=== PATIENT | male | born 1995 | race Caucasian/White ===

== ENCOUNTER 2017-09-17 15:39 | Inpatient (IN) | payer OTHER ==
[~2017-09-17] VITALS: Ht 182.9 cm; Wt 121.4 kg
[2017-09-17 15:48] VITALS: Ht 182.9 cm; Wt 121.4 kg
[2017-09-17] MEDS ORDERED: ONDANSETRON 4 MG INJ IV STA (17:09)
[2017-09-17] MEDS ORDERED: morphine 4 MG/ML VIAL IV STA (17:09)
[2017-09-17] MEDS ORDERED: SOD CHLORIDE 0.9% 1,000 ML IV STA (17:09)
--- NOTE | 2017-09-17 17:23 | ERD ---
ER Documentation Chief Complaint Chief Complaint Sent from for eval and possible admission HPI 21-year-old man with a history of recent left ankle fracture referred here by his orthopedic surgeon for further imaging and possible surgical intervention. He fractured his left ankle about 3 weeks ago, it has been in a splint since then. Patient describes mild discomfort to the left ankle, no paresis or paresthesias no discoloration of the toes. ROS All systems reviewed and are negative except as per history of present illness. Medications Home Meds Reported Medications Hydrocodone Bit-Acetaminophen (Hydrocodone Bit-APAP) 5-325MG Tablet, 1 TAB PO Q6H Y for PAIN, TAB 09/17/17 Ibuprofen* (Ibuprofen*) 600 Mg Tablet, 600 MG PO Q6 Y for PAIN, TAB 09/17/17 Allergies Allergies: Coded Allergies: No Known Allergy (Unverified , 09/17/17) PMhx/Soc Recent left ankle fracture Medical and Surgical Hx: pt denies Medical Hx, pt denies Surgical Hx Hx Alcohol Use: No Hx Substance Use: No Hx Tobacco Use: No Smoking Status: Never smoker FmHx Family History: No diabetes Physical Exam Vitals Vital Signs Date Time Temp Pulse Resp B/P Pulse Ox O2 Delivery O2 Flow Rate FiO2 09/17/17 15:48 98.9 117 20 140/86 97 Physical Exam GENERAL: Well-developed, well-nourished, well-hydrated, in no apparent distress , looks nontoxic in appearance HEENT: Moist mucous membranes, pink conjunctiva, no cervical spine tenderness or step-off deformities, no goiter, no jaundice or icterus, extraocular movements intact without pain. No submandibular induration, and no pharyngeal erythema NEURO: Alert and oriented 3, cranial nerves II through XII intact bilaterally, pupils equal round reactive to light, no focal deficits or facial asymmetry, sensation intact distally Strength 5/5 in upper and lower extremities bilaterally CARDIAC: Regular rate and rhythm, no murmurs rubs or gallops LUNGS: Clear bilaterally no wheezing crackles or stridor ABDOMEN: Soft nontender, no guarding, no rigidity, no rebound, no psoas sign no obturator sign. Normoactive bowel sounds SKIN: Warm and dry to touch, no abrasions, contusions, or hematomas, no lacerations, no ecchymosis, no target lesions, and without ulcers EXTREMITIES: No clubbing cyanosis or edema, calves are bilaterally symmetrical, no Homans sign, no popliteal cord sign. Distal pulses equal and bilateral PSYCH: Normal affect without agitation or irritability Result Diagram: 09/17/17 1720 09/17/17 1720 Results 24 hrs Laboratory Tests Test 09/17/17 17:20 White Blood Count 8.810^3/ul Red Blood Count 4.8410^6/ul Hemoglobin 14.3g/dl Hematocrit 43.9% Mean Corpuscular Volume 90.7fl Mean Corpuscular Hemoglobin 29.5pg Mean Corpuscular Hemoglobin Concent 32.6g/dl Red Cell Distribution Width 12.3% Platelet Count 08979^3/UL Mean Platelet Volume 10.1fl Neutrophils % 61.1% Lymphocytes % 29.7% Monocytes % 7.3% Eosinophils % 1.3% Basophils % 0.3% Nucleated Red Blood Cells % 0.0/100WBC Neutrophils # 5.410^3/ul Lymphocytes # 2.610^3/ul Monocytes # 0.610^3/ul Eosinophils # 0.110^3/ul Basophils # 0.010^3/ul Nucleated Red Blood Cells # 0.010^3/ul Prothrombin Time 13.3Sec Prothrombin Time Ratio 1.0 INR International Normalized Ratio 1.00 Sodium Level 146mmol/L Potassium Level 4.2mmol/L Chloride Level 104mmol/L Carbon Dioxide Level 29mmol/L Anion Gap 17 Blood Urea Nitrogen 8mg/dl Creatinine 0.86mg/dl Glucose Level 90mg/dl Calcium Level 9.7mg/dl Current Medications Medications (Trade) Dose Ordered Sig/Salazar Route PRN Reason Start Time Stop Time Status Last Admin Dose Admin Sodium Chloride (NS) 1,000 ml @ 1,000 mls/hr Q1H STAT IV 09/17/17 17:09 09/17/17 18:08 DC 09/17/17 17:29 Morphine Sulfate (morphine) 4 mg ONCE STAT IV 09/17/17 17:09 09/17/17 17:12 DC 09/17/17 17:29 Ondansetron HCl (Zofran Inj) 4 mg ONCE STAT IV 09/17/17 17:09 09/17/17 17:12 DC 09/17/17 17:29 Procedures/MDM IV line was established patient was placed on monitor and storage bin tender rhythm strip revealed a sinus rhythm at about 80 bpm with upright P and T waves. Patient was afebrile I administered 1 L normal saline intravenously, morphine 4 mg IV, Zofran [address] scan of the left ankle was performed IMPRESSION: 1. Comminuted intra-articular displaced left distal tibial fracture with posterior displacement of the majority of the articular surface. 2. There are intra-articular bony fragments. CBC and electrolytes are normal, coagulation profile was normal. I spoke to the patient's orthopedic surgeon, who recommended admission and n.p.o. after midnight for surgical intervention tomorrow morning. Patient to be admitted to [facility] for continued medical management and orthopedic surgical intervention. Departure Diagnosis: Primary Impression: Closed left ankle fracture Encounter type: initial encounter Qualified Code: S82.892A - Closed fracture of left ankle, initial encounter Condition: NASEEM Meyer MD Sep 17, 2017 17:23
[2017-09-17 17:42] LABS: BASOPHILS % 0.3 % (0.0-2.0); EOSINOPHILS # 0.1 10^3/ul (0.0-0.5); EOSINOPHILS % 1.3 % (0.0-7.0); HEMATOCRIT 43.9 % (42.0-52.0); HEMOGLOBIN 14.3 g/dl (14.0-18.0); LYMPHOCYTES # 2.6 10^3/ul (0.8-2.9); LYMPHOCYTES % 29.7 % (15.0-51.0); MEAN CORPUSCULAR HEMOGLOBIN 29.5 pg (29.0-33.0); MEAN CORPUSCULAR HGB CONC 32.6 g/dl (32.0-37.0); MEAN CORPUSCULAR VOLUME 90.7 fl (82.0-101.0); MEAN PLATELET VOLUME 10.1 fl (7.4-10.4); MONOCYTE # 0.6 10^3/ul (0.3-0.9); MONOCYTES % 7.3 % (0.0-11.0); NEUTROPHIL # 5.4 10^3/ul (1.6-7.5); NEUTROPHILS % 61.1 % (39.0-77.0); PLATELET COUNT 444 10^3/UL (140-415); RED BLOOD COUNT 4.84 10^6/ul (4.70-6.10); RED CELL DISTRIBUTION WIDTH 12.3 % (11.5-14.5); WHITE BLOOD COUNT 8.8 10^3/ul (4.8-10.8)
[2017-09-17 18:03] LABS: PROTIME 13.3 Sec (11.9-14.9)
[2017-09-17 18:09] LABS: CALCIUM 9.7 mg/dl (8.4-10.2); CREATININE 0.86 mg/dl (0.61-1.24); POTASSIUM 4.2 mmol/L (3.5-5.1)
--- NOTE | 2017-09-17 18:47 | RADRPT ---
PROCEDURE: CT LEFT ANKLE CLINICAL INDICATION: Injury. Fracture.. TECHNIQUE: CT scan of the left ankle was performed on a multi -slice scanner. No IV contrast was administered. Coronal and sagittal reformatted images were obtained from the axial source images. The total exam DLP equals 793.33 mGy-cm. The CDTI volume was 18.42 mGy. One or more of the following dose reduction techniques were used: - Automated exposure control. - Adjustment of the mA and/or kV according to patient size . - Use of iterative reconstruction technique. Images were reviewed on a high-resolution PACS workstation. DICOM images are available. COMPARISON: None. FINDINGS: There is a comminuted intra-articular displaced left distal tibial fracture. There is a vertical spl it component with the separation of 2 cm seen on sagittal image number 77. The posterior aspect of t he tibia is displaced 16 mm posteriorly. There is a 2.6 cm butterfly fragment medially. There are in tra-articular fragments. No fibular component is identified. No evidence for talar dome osteochondra l defect. No evidence for calcaneal fracture. No evidence for midfoot or forefoot fracture. There is surrounding soft tissue swelling. IMPRESSION: 1. Comminuted intra-articular displaced left distal tibial fracture with posterior displacement of the majority of the articular surface. 2. There are intra-articular bony fragments. RPTAT: XX .Ki Zapata MD, Date Time Electronically viewed and signed by .Ki Zapata MD, MD on 09/17/2017 18:46 .T/
[2017-09-17 19:22] VITALS: TEMP 98.6
[2017-09-17 21:15] VITALS: BP 129/69; RESP 20
[2017-09-17] MEDS ORDERED: HYDR-3498 PO (21:37)
[2017-09-17] MEDS ORDERED: IBUP-1542 PO (21:37)
[2017-09-17] MEDS ORDERED: ONDANSETRON 4 MG INJ IV PRN (22:00)
[2017-09-17] MEDS ORDERED: morphine 4 MG/ML VIAL IV PRN (22:00)
[2017-09-18] VITALS (18 sets, daily range): BP systolic 112–153; BP diastolic 64–75; PULSE 101–118; RESP 14–24
[2017-09-18] MEDS: DEXTROSE 5%-0.45% NACL 1,000 ML IV SCH ×3 (00:23→16:18)
--- NOTE | 2017-09-18 05:21 | HP ---
Date/Time of Note Date/Time of Note DATE: 09/18/17 TIME: 05:18 Assessment/Plan VTE Prophylaxis VTE Prophylaxis Intervention: SCD's Lines/Catheters IV Catheter Type (from Nrs): Saline Lock Urinary Cath still in place: No Assessment/Plan Assessment/Plan 1. Left distal tibial fracture -Keep n.p.o. for possible surgical intervention in the morning -Pain management 2. Mild hypernatremia -Check repeat a.m. lab 3. Obesity, with a BMI of 36 - weight reduction advised HPI/ROS Admit Date/Time Admit Date/Time Sep 17, 2017 at 18:16 Hx of Present Illness This is a 21-year-old man with no significant chronic medical history who is admitted for orthopedic intervention. Patient fractured his left ankle about 3 weeks ago and has been on a cast since then. He was sent by his orthopedic surgeon for possible surgery in a.m. patient complains of some pain on left lower extremity otherwise denied shortness of breath, chest pain, fever/chills, nausea or vomiting. When he initially presented to the ER, BP was 140/86 with a heart rate of 117. Tachycardia has since resolved after a liter of NS and morphine. Labs shows sodium of 146 otherwise CBC and BMP are within acceptable range. CT of the left lower extremity showed comminuted intra-articular displaced left distal tibial fracture with posterior displacement of the majority of the articular surface and intra-articular bony fragments. PMH/Family/Social Social History Smoking Status: Never smoker Exam/Review of Systems Vital Signs Vitals Vital Signs Date Time Temp Pulse Resp B/P Pulse Ox O2 Delivery O2 Flow Rate FiO2 09/18/17 01:58 98.0 64 20 118/68 98 09/17/17 20:30 Room Air Intake and Output 09/17/17 09/17/17 09/18/17 14:59 22:59 06:59 Intake Total 450 ml Balance 450 ml Exam Constitutional: alert, oriented, well developed Head: atraumatic, normocephalic Eyes: EOMI, PERRL Respiratory: clear to auscultation, normal air movement Cardiovascular: nl pulses, regular rate and rhythm Gastrointestinal: non-tender, soft Extremities: other (Left lower extremity in a splint) Labs Result Diagram: 09/17/17 1720 09/17/17 1720 Medications Medications Current Medications Dextrose/Sodium Chloride (D5-1/2ns) 1,000 ml @ 100 mls/hr Q10H IV Last administered on 09/18/17 00:23; Admin Dose 100 MLS/HR; Start 09/18/17 at 00: 00 Morphine Sulfate (morphine) 4 mg Q4H PRN IV PAIN; Start 09/17/17 at 22:00 Ondansetron HCl (Zofran Inj) 4 mg Q6H PRN IV NAUSEA AND/OR VOMITING; Start 07/25 at 22:00 Influenza Virus Vaccine (Fluzone) 0.5 ml ONCE ONCE IM* ; Start 09/19/17 at 09: 00; Stop 09/19/17 at 09:01 BOB SANTILLAN MD Sep 18, 2017 05:21
[2017-09-18 05:53] LABS: WHITE BLOOD COUNT 8.4 10^3/ul (4.8-10.8)
[2017-09-18 05:54] LABS: BASOPHILS % 0.4 % (0.0-2.0); EOSINOPHILS # 0.2 10^3/ul (0.0-0.5); EOSINOPHILS % 2.4 % (0.0-7.0); HEMATOCRIT 38.9 % (42.0-52.0); HEMOGLOBIN 12.6 g/dl (14.0-18.0); LYMPHOCYTES % 47.9 % (15.0-51.0); MEAN CORPUSCULAR HEMOGLOBIN 29.5 pg (29.0-33.0); MEAN CORPUSCULAR HGB CONC 32.4 g/dl (32.0-37.0); MEAN CORPUSCULAR VOLUME 91.1 fl (82.0-101.0); MEAN PLATELET VOLUME 10.4 fl (7.4-10.4); MONOCYTE # 0.7 10^3/ul (0.3-0.9); NEUTROPHIL # 3.5 10^3/ul (1.6-7.5); NEUTROPHILS % 40.9 % (39.0-77.0); PLATELET COUNT 354 10^3/UL (140-415); RED BLOOD COUNT 4.27 10^6/ul (4.70-6.10); RED CELL DISTRIBUTION WIDTH 12.1 % (11.5-14.5)
[2017-09-18 06:15] LABS: ALBUMIN 3.5 g/dl (3.3-4.9); ALBUMIN/GLOBULIN RATIO 1.12; BILIRUBIN,INDIRECT 0.4 mg/dl (0-1.1); BILIRUBIN,TOTAL 0.4 mg/dl (0.2-1.3); CALCIUM 9.3 mg/dl (8.4-10.2); CREATININE 0.84 mg/dl (0.61-1.24); PHOSPHORUS 4.7 mg/dl (2.5-4.9); POTASSIUM 3.8 mmol/L (3.5-5.1); TOTAL PROTEIN 6.6 g/dl (6.1-8.1)
--- NOTE | 2017-09-18 08:11 | CONS ---
Date/Time of Note Date/Time of Note DATE: 09/18/17 TIME: 08:02 Assessment/Plan Assessment/Plan Additional Assessment/Plan 21 yo male with displaced left distal tibial pilon fracture dislocation - add on for emergent surgery ORIF today - NPO - IVF - NWB to the LLE -Cristobal BARRIOS MD Consultation Date/Type/Reason Admit Date/Time Sep 17, 2017 at 18:16 Date of Consultation: Sep 18, 2017 Type of Consultation: Orthopedic Surgery Referring Provider: BOB SANTILLAN MD Hx of Present Illness Patient is a 21 year old male who sustained a distal tibial pilon fracture 3.5 weeks ago. Due to insurance issues patient does not present for surgery until now. He was admitted through the ER yesterday and ct scan shows displaced ankle fracture dislocation. Patient requires urgent surgical fixation. Pain is moderately controlled Past Medical History Medical History: no pertinent history Past Surgical History Past Surgical Hx: no surgical history Family History Significant Family History: no pertinent family hx Social History Alcohol Use: none Smoking Status: Never smoker Drug Use: none Exam/Review of Systems Vital Signs Vitals Vital Signs Date Time Temp Pulse Resp B/P Pulse Ox O2 Delivery O2 Flow Rate FiO2 09/18/17 07:22 97.9 71 14 112/65 99 09/17/17 20:30 Room Air Intake and Output 09/17/17 09/17/17 09/18/17 15:00 23:00 07:00 Intake Total 450 ml Balance 450 ml Exam Musculoskeletal: other (LLE/ Splint intact, toes wiggle, sens intact to lt touch to the m/l/p with slightly decr to the fdws and dorsum but intact, cr brisk) Results Result Diagram: 09/18/17 0505 09/18/17 0505 Results 24 hrs Laboratory Tests Test 09/17/17 17:20 09/18/17 05:05 White Blood Count 8.8 8.4 Red Blood Count 4.84 4.27 L Hemoglobin 14.3 12.6 L Hematocrit 43.9 38.9 L Mean Corpuscular Volume 90.7 91.1 Mean Corpuscular Hemoglobin 29.5 29.5 Mean Corpuscular Hemoglobin Concent 32.6 32.4 Red Cell Distribution Width 12.3 12.1 Platelet Count 444 H 354 # Mean Platelet Volume 10.1 10.4 Neutrophils % 61.1 40.9 Lymphocytes % 29.7 47.9 Monocytes % 7.3 8.0 Eosinophils % 1.3 2.4 Basophils % 0.3 0.4 Nucleated Red Blood Cells % 0.0 0.0 Neutrophils # 5.4 3.5 Lymphocytes # 2.6 4.0 H Monocytes # 0.6 0.7 Eosinophils # 0.1 0.2 Basophils # 0.0 0.0 Nucleated Red Blood Cells # 0.0 0.0 Prothrombin Time 13.3 Prothrombin Time Ratio 1.0 INR International Normalized Ratio 1.00 Sodium Level 146 H 143 Potassium Level 4.2 3.8 Chloride Level 104 106 Carbon Dioxide Level 29 28 Anion Gap 17 H 13 Blood Urea Nitrogen 8 6 L Creatinine 0.86 0.84 Glucose Level 90 103 Calcium Level 9.7 9.3 Phosphorus Level 4.7 Magnesium Level 2.0 Total Bilirubin 0.4 Direct Bilirubin 0.00 Indirect Bilirubin 0.4 Aspartate Amino Transf (AST/SGOT) 22 Alanine Aminotransferase (ALT/SGPT) 52 Alkaline Phosphatase 77 Total Protein 6.6 Albumin 3.5 Globulin 3.10 Albumin/Globulin Ratio 1.12 Medications Medications Current Medications Dextrose/Sodium Chloride (D5-1/2ns) 1,000 ml @ 100 mls/hr Q10H IV Last administered on 09/18/17t 00:23; Admin Dose 100 MLS/HR; Start 09/18/17 at 00: 00 Morphine Sulfate (morphine) 4 mg Q4H PRN IV PAIN; Start 09/17/17 at 22:00 Ondansetron HCl (Zofran Inj) 4 mg Q6H PRN IV NAUSEA AND/OR VOMITING; Start 07/25 at 22:00 Influenza Virus Vaccine (Fluzone) 0.5 ml ONCE ONCE IM* ; Start 09/19/17 at 09: 00; Stop 09/19/17 at 09:01 COOKIE BARRIOS MD Sep 18, 2017 08:11
[2017-09-18] MEDS ORDERED: morphine 1 MG/ML 30 ML (PCA) IV SCH (08:30)
[2017-09-18] MEDS ORDERED: CEFAZOLIN 2 GM/50 ML (PMX) 50 ML IVPB ONE (09:00)
--- NOTE | 2017-09-18 09:00 | PN ---
Date/Time of Note Date/Time of Note DATE: 09/18/17 TIME: 08:59 Assessment/Plan VTE Prophylaxis VTE Prophylaxis Intervention: SCD's Lines/Catheters IV Catheter Type (from Nrs): Saline Lock Urinary Cath still in place: No Assessment/Plan Assessment/Plan 1. Left distal tibial fracture - emergent surgery ORIF today -Pain management 2. Mild hypernatremia: resolved 3. Obesity, with a BMI of 36 - weight reduction advise reinforced Resume supportive care post op / f/u surgical findings Subjective 24 Hr Interval Summary Free Text/Dictation patient doing well, states pain is well controlled Exam/Review of Systems Vital Signs Vitals Vital Signs Date Time Temp Pulse Resp B/P Pulse Ox O2 Delivery O2 Flow Rate FiO2 09/18/17 07:22 97.9 71 14 112/65 99 09/17/17 20:30 Room Air Intake and Output 09/17/17 09/17/17 09/18/17 15:00 23:00 07:00 Intake Total 450 ml Balance 450 ml Exam Constitutional: alert, oriented, well developed Head: atraumatic, normocephalic Eyes: EOMI, PERRL Respiratory: clear to auscultation, normal air movement Cardiovascular: nl pulses, regular rate and rhythm Gastrointestinal: non-tender, soft Extremities: other (Left lower extremity in a splint) Results Result Diagram: 09/18/17 0505 09/18/17 0505 Results 24 hrs Laboratory Tests Test 09/17/17 17:20 09/18/17 05:05 White Blood Count 8.8 8.4 Red Blood Count 4.84 4.27 L Hemoglobin 14.3 12.6 L Hematocrit 43.9 38.9 L Mean Corpuscular Volume 90.7 91.1 Mean Corpuscular Hemoglobin 29.5 29.5 Mean Corpuscular Hemoglobin Concent 32.6 32.4 Red Cell Distribution Width 12.3 12.1 Platelet Count 444 H 354 # Mean Platelet Volume 10.1 10.4 Neutrophils % 61.1 40.9 Lymphocytes % 29.7 47.9 Monocytes % 7.3 8.0 Eosinophils % 1.3 2.4 Basophils % 0.3 0.4 Nucleated Red Blood Cells % 0.0 0.0 Neutrophils # 5.4 3.5 Lymphocytes # 2.6 4.0 H Monocytes # 0.6 0.7 Eosinophils # 0.1 0.2 Basophils # 0.0 0.0 Nucleated Red Blood Cells # 0.0 0.0 Prothrombin Time 13.3 Prothrombin Time Ratio 1.0 INR International Normalized Ratio 1.00 Sodium Level 146 H 143 Potassium Level 4.2 3.8 Chloride Level 104 106 Carbon Dioxide Level 29 28 Anion Gap 17 H 13 Blood Urea Nitrogen 8 6 L Creatinine 0.86 0.84 Glucose Level 90 103 Calcium Level 9.7 9.3 Phosphorus Level 4.7 Magnesium Level 2.0 Total Bilirubin 0.4 Direct Bilirubin 0.00 Indirect Bilirubin 0.4 Aspartate Amino Transf (AST/SGOT) 22 Alanine Aminotransferase (ALT/SGPT) 52 Alkaline Phosphatase 77 Total Protein 6.6 Albumin 3.5 Globulin 3.10 Albumin/Globulin Ratio 1.12 Medications Medications Current Medications Dextrose/Sodium Chloride (D5-1/2ns) 1,000 ml @ 100 mls/hr Q10H IV Last administered on 09/18/17t 00:23; Admin Dose 100 MLS/HR; Start 09/18/17 at 00: 00 Morphine Sulfate (morphine) 4 mg Q4H PRN IV PAIN; Start 09/17/17 at 22:00 Ondansetron HCl (Zofran Inj) 4 mg Q6H PRN IV NAUSEA AND/OR VOMITING; Start 07/25 at 22:00 Influenza Virus Vaccine 0.5 ml 0.5 ml ONCE ONCE IM* ; Start 09/19/17 at 09:00; Stop 09/19/17 at 09:01 Cefazolin Sodium/ Dextrose (Ancef 2 Gm/50 ml (Pmx)) 50 ml @ 100 mls/hr PRE-OP ONCE IVPB ; Start 09/18/17 at 09:00; Stop 09/18/17 at 09:29 EUGENIA BLAND Sep 18, 2017 09:00
[2017-09-18] MEDS ORDERED: LIDOCAINE 2% (SDV) 5 ML INJ ONE (10:23)
[2017-09-18] MEDS ORDERED: FAMOTIDINE 20 MG INJ ONE (10:23)
[2017-09-18] MEDS ORDERED: FENTAnyl 50 MCG/ML VIAL ONE ×3 (10:23→14:49)
[2017-09-18] MEDS ORDERED: MIDAZOLAM 1 MG/ML 2 ML INJ ONE (10:23)
[2017-09-18] MEDS ORDERED: PROPOFOL 40 ML ONE (10:23)
[2017-09-18] MEDS ORDERED: ONDANSETRON 4 MG INJ ONE (10:23)
[2017-09-18] MEDS ORDERED: DEXAMETHASONE 4 MG/ML 1 ML INJ ONE (10:23)
[2017-09-18] MEDS ORDERED: ROCURONIUM 50 MG INJ ONE (10:23)
[2017-09-18] MEDS ORDERED: morphine (1 MG/ML) 10ML SYRINGE IV PRN (11:00)
[2017-09-18] MEDS ORDERED: KETOROLAC 30 MG INJ IV PRN (11:00)
[2017-09-18] MEDS ORDERED: FENTAnyl 50 MCG/ML VIAL IV PRN (11:00)
[2017-09-18] MEDS ORDERED: ONDANSETRON 4 MG INJ IV PRN ×2 (11:00→16:00)
[2017-09-18] MEDS ORDERED: HYDROmorphONE (0.2 MG/ML) 10ML SYG IV PRN (11:00)
[2017-09-18] MEDS ORDERED: MEPERIDINE 25 MG INJ IV PRN (11:00)
[2017-09-18] MEDS ORDERED: POLYMYXIN/BACITRACIN 1L IRRIG IRR ONE (11:25)
[2017-09-18] MEDS ORDERED: SUGAMMADEX SODIUM 200 MG/2 ML VIAL IV ONE (12:04)
[2017-09-18] MEDS ORDERED: NEOMYC/POLYMYX/BACIT 30 GM OINT ONE (14:17)
[2017-09-18] MEDS ORDERED: KETOROLAC 30 MG INJ ONE (14:26)
[2017-09-18] MEDS ORDERED: ROPIVACAINE 0.5 % 30 ML VIAL ONE (15:01)
--- NOTE | 2017-09-18 15:29 | SIPON ---
Date/Time of Note Date/Time of Note DATE: 09/18/17 TIME: 15:29 Operative Report Preoperative Diagnosis Left ankle fracture dislocation with displaced distal tibial pilon fracture Postoperative Diagnosis Left ankle fracture dislocation with displaced distal tibial pilon fracture Operation/Procedure Performed Left ankle fracture dislocation displaced distal tibial pilon fracture open reduction internal fixation with allograft Application of external fixator followed by removal of ex- fix Surgeon Wade Barrios MD equity sales assistant None Anesthesia: general Estimated blood loss: 50 - 100 ml's Transfusion Required none Specimen none Grafts/Implants see operative note Complications none WADE BARRIOS MD Sep 18, 2017 15:29
--- NOTE | 2017-09-18 15:29 | OPR ---
Date/Time of Note Date/Time of Note DATE: 09/18/17 TIME: 15:29 Operative Report Procedure Date: Sep 18, 2017 Preoperative Diagnosis Left ankle fracture dislocation with displaced distal tibial pilon fracture Postoperative Diagnosis Left ankle fracture dislocation with displaced distal tibial pilon fracture Operation/Procedure Performed Left ankle fracture dislocation displaced distal tibial pilon fracture open reduction internal fixation with allograft Application of external fixator followed by removal of ex- fix Surgeon Wade Barrios MD Signals Collection Technician None Anesthesia Type: general Tourniquet Time: 130 min at 250 mmHg Estimated Blood Loss: 50 - 100 ml's Transfusion none Specimen none Grafts/Implants Niki Distal tibial pilon plate and screws with medial plate and screws [employer] Elite Bone Graft Complications none Pt Condition Post Procedure: stable Disposition: PACU Indications Patient is a 21-year-old gentleman who sustained a left ankle fracture dislocation approximately 3 and half weeks ago. He presented to my office 2 days ago and his ankle was completely dislocated at the time of presentation if he arrived in a posterior mold splint. He reported that the delay in presentation was due to insurance authorization issues. Given the significant dislocation I recommend patient go to emergency room so we could proceed with urgent reduction and fixation. Patient was admitted and given the extent of the fracture dislocation patient required open reduction internal fixation of the distal tibial pilon and fibular fracture. Procedure Description Risk Note: Patient was explained the risks and benefits of surgery and the patient's [place] language including not limited to infection, bleeding, injury to blood vessels, nerves, ligaments or tendons. Risks of anesthesia, deep vein thrombosis and need for reduce future surgery. Patient acknowledged these risk by signing the surgical consent form. Modifier 22 note: Given the extensive length of time the patient's ankle was in a dislocated position this required an extraordinary amount of technical skill and time in the operating room to both obtain adequate length alignment and rotation. This required applying an external fixator device in order to reduce the fracture and the pain length and alignment and reduction of the fracture. The external fixator had to be removed and the case but this added a significant time to the case and thus made the case extensively more challenging and technically difficult due to the length of time of the fracture being in the mal-reduced position. Thus the case should be given a modifier 22 compensation. Operative note: Patient was met in the preoperative area and the correct operative extremity was confirmed with the patient and consent and marked accordingly. Patient was then brought to the operative theater placed supine on operative table given preoperative antibiotics. Patient was prepped and draped in normal sterile fashion. A timeout was taken in all parties in the room agreed direct patient extremity and procedure. Attention was initially placed to reduce in the fracture dislocation given that the talus was posteriorly displaced on the tibia. A external fixator was placed in a delta frame position with 2 Schanz pins proximally on the tibia followed by a calcaneal pin placed medial to lateral at the calcaneus. The fracture was then distracted out to length using the external fixator device. This is confirmed on both AP lateral and oblique fluoroscopic position. Tourniquet was then brought up incision was made in the anterior lateral approach and care was taken to avoid any injury to the neurovascular structures. Fracture was identified along the anterior lateral aspect of the distal fibula and there is extensive comminution and osteopenia seen at this fracture site. The fracture was reduced and held in position with K wires. An anterior lateral distal tibial pilon plate was then placed compressing the fracture and a lag screw is in place free of the fracture plate and further reduce the fracture fragment. The [employer] Elite allograft was also placed in the site of bone loss to further obtain allograft assistance in the healing of the fracture. The final fixation was then placed with screws both proximal and locking screws distally along the anterior surface of the distal tibia. It was confirmed that the screws were not in the joint shown on both lateral and AP position. Once the anterior lateral leg was placed and there is shown to be excellent reduction of the articular surface attention was then turned to the medial aspect of the ankle incision was made along the medial aspect and decision was performed fracture was identified hematoma was removed and fracture was further reduced and held in position with K wires and then fixated with the medial tibial plate. The fracture was reduced and held in position with lag screw fixation and locking screw nonlocking screw fixation. Once the fracture was gently reduced and with the AP, lateral and oblique position all wounds irrigated thoroughly and closed in layers with 0 Vicryl followed by 2-0 Vicryl followed by 3-0 Vicryl and then 3-0 nylon in a running vertical mattress fashion. All wounds are dressed Xeroform, antibiotic ointment 4 x 4's and placed in a well-padded short leg splint. I then the case all lunges and needle counts were correct. I then the case the pulses were 2+ and patient was taken to the PACU in stable condition. WADE BARRIOS MD Sep 18, 2017 15:29
[2017-09-18] MEDS: morphine 1 MG/ML 30 ML (PCA) IV SCH (15:58)
[2017-09-18] MEDS ORDERED: MAGNESIUM HYDROXIDE 30ML CUP PO PRN (16:00)
[2017-09-18] MEDS ORDERED: CEFAZOLIN 1 GM INJ IV SCH (16:00)
[2017-09-18] MEDS ORDERED: DIPHENHYDRAMINE 25 MG CAP PO PRN (16:00)
[2017-09-18] MEDS ORDERED: OXYCODONE/ACETAMINOPHEN (5/325) TAB PO PRN (16:00)
[2017-09-18] MEDS ORDERED: morphine 10 MG INJ IV PRN (16:00)
[2017-09-18] MEDS: CEFAZOLIN 2 GM/50 ML (PMX) 50 ML IVPB SCH (16:23)
[2017-09-18] MEDS: SENNA/DOCUSATE NA (8.6MG/50MG) TAB PO SCH (20:35)
[2017-09-19] MEDS: CEFAZOLIN 2 GM/50 ML (PMX) 50 ML IVPB SCH ×3 (00:34→17:23)
[2017-09-19 02:14] VITALS: BP 125/75; RESP 18
[2017-09-19 05:59] LABS: BASOPHILS % 0.2 % (0.0-2.0); EOSINOPHILS % 0.1 % (0.0-7.0); HEMATOCRIT 36.8 % (42.0-52.0); HEMOGLOBIN 12.1 g/dl (14.0-18.0); LYMPHOCYTES # 2.1 10^3/ul (0.8-2.9); LYMPHOCYTES % 15.9 % (15.0-51.0); MEAN CORPUSCULAR HEMOGLOBIN 29.8 pg (29.0-33.0); MEAN CORPUSCULAR HGB CONC 32.9 g/dl (32.0-37.0); MEAN CORPUSCULAR VOLUME 90.6 fl (82.0-101.0); MEAN PLATELET VOLUME 10.3 fl (7.4-10.4); MONOCYTE # 1.4 10^3/ul (0.3-0.9); MONOCYTES % 10.6 % (0.0-11.0); NEUTROPHIL # 9.6 10^3/ul (1.6-7.5); NEUTROPHILS % 72.8 % (39.0-77.0); PLATELET COUNT 375 10^3/UL (140-415); RED BLOOD COUNT 4.06 10^6/ul (4.70-6.10); RED CELL DISTRIBUTION WIDTH 12.2 % (11.5-14.5); WHITE BLOOD COUNT 13.2 10^3/ul (4.8-10.8)
[2017-09-19 06:24] LABS: CALCIUM 9.2 mg/dl (8.4-10.2); CREATININE 0.88 mg/dl (0.61-1.24); MAGNESIUM 1.9 mg/dl (1.7-2.5); POTASSIUM 4.6 mmol/L (3.5-5.1)
[2017-09-19 07:22] VITALS: BP 112/59; RESP 14
[2017-09-19] MEDS: SENNA/DOCUSATE NA (8.6MG/50MG) TAB PO SCH ×2 (08:30→20:41)
[2017-09-19] MEDS ORDERED: INFLUENZA VIRUS VACCINE 0.5 ML (DISPENSING) IM* ONE (09:00)
--- NOTE | 2017-09-19 11:07 | PN ---
Date/Time of Note Date/Time of Note DATE: 09/19/17 TIME: 10:58 Assessment/Plan VTE Prophylaxis VTE Prophylaxis Intervention: other (xarelto) Lines/Catheters IV Catheter Type (from Nrs): Peripheral IV Urinary Cath still in place: No Assessment/Plan Assessment/Plan 1. 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 Mild hypernatremia: resolved 3. Obesity, with a BMI of 36 - weight reduction advise reinforced 4. leucocytosis : likely stress related Resume supportive care post op Subjective 24 Hr Interval Summary Free Text/Dictation Patient is c/o pain which he describes as a twisting sensation in his mid leg which started after PT. he was able to ambulate with crutches without bearing weight on R leg. The morphine FIGHTING VEHICLE INFANTRYMAN is not really helping. Exam/Review of Systems Vital Signs Vitals Vital Signs Date Time Temp Pulse Resp B/P Pulse Ox O2 Delivery O2 Flow Rate FiO2 09/19/17 07:22 98.9 87 14 112/59 94 09/18/17 16:00 Room Air 09/18/17 15:19 6.0 Intake and Output 09/18/17 09/18/17 09/19/17 15:00 23:00 07:00 Intake Total 2150 ml 300 ml 525 ml Output Total 100 ml Balance 2150 ml 200 ml 525 ml Exam Constitutional: alert Psych: anxiety Eyes: PERRL ENMT: mucosa pink and moist Neck: supple Respiratory: clear to auscultation Cardiovascular: regular rate and rhythm, No murmurs/extra sounds Gastrointestinal: bowel sounds, non-tender, soft Musculoskeletal: other (R knee in cast fro toes to just below knee. Area around R knee is non tender nor inflammed nor obviously displaced) Neurological: nl mental status Skin: No rash or lesions Results Result Diagram: 09/19/17 0453 09/19/17 0453 Results 24 hrs Laboratory Tests Test 09/19/17 04:53 White Blood Count 13.2 #H Red Blood Count 4.06 L Hemoglobin 12.1 L Hematocrit 36.8 L Mean Corpuscular Volume 90.6 Mean Corpuscular Hemoglobin 29.8 Mean Corpuscular Hemoglobin Concent 32.9 Red Cell Distribution Width 12.2 Platelet Count 375 Mean Platelet Volume 10.3 Neutrophils % 72.8 Lymphocytes % 15.9 Monocytes % 10.6 Eosinophils % 0.1 Basophils % 0.2 Nucleated Red Blood Cells % 0.0 Neutrophils # 9.6 H Lymphocytes # 2.1 Monocytes # 1.4 H Eosinophils # 0.0 Basophils # 0.0 Nucleated Red Blood Cells # 0.0 Sodium Level 141 Potassium Level 4.6 Chloride Level 104 Carbon Dioxide Level 29 Anion Gap 13 Blood Urea Nitrogen 5 L Creatinine 0.88 Glucose Level 113 Calcium Level 9.2 Magnesium Level 1.9 Medications Medications Current Medications Dextrose/Sodium Chloride (D5-1/2ns) 1,000 ml @ 50 mls/hr Q20H IV Last administered on 09/18/17 16:18; Admin Dose 100 MLS/HR; Start 09/18/17 at 00: 00 Ondansetron HCl (Zofran Inj) 4 mg Q6H PRN IV NAUSEA AND/OR VOMITING Last administered on 09/18/17 16:41; Admin Dose 4 MG; Start 09/17/17 at 22:00 Senna/Docusate Sodium (Senokot-S) 1 tab BID PO Last administered on 09/19/17 08:30; Admin Dose 1 TAB; Start 09/18/17 at 21:00 Magnesium Hydroxide (Milk Of Mag) 30 ml BID PRN PO CONSTIPATION; Start at 16:00 Oxycodone/ Acetaminophen (Percocet (5/ 325)) 2 tab Q4H PRN PO PAIN Last administered on 09/19/17 10:24; Admin Dose 2 TAB; Start 09/18/17 at 16:00 Morphine Sulfate (morphine) 5 mg Q4H PRN IV PAIN LEVEL 7-10; Start 09/18/17 at 16:00 Ondansetron HCl (Zofran Inj) 4 mg Q4H PRN IV NAUSEA AND/OR VOMITING Last administered on 09/18/17 20:35; Admin Dose 4 MG; Start 09/18/17 at 16:00 Diphenhydramine HCl (Benadryl) 25 mg Q4H PRN PO ITCHING; Start 09/18/17 at 16: 00 Morphine Sulfate 1.5 MG DOSE 10 ... Q4PCA IV Last administered on 09/18/17 15:58; Admin Dose 30 MG; Start 09/18/17 at 16:00 Cefazolin Sodium/ Dextrose (Ancef 2 Gm/50 ml (Pmx)) 50 ml @ 100 mls/hr Q8H IVPB Last administered on 09/19/17 08:30; Admin Dose 100 MLS/HR; Start 09/18 at 16:30; Stop 09/20/17 at 08:59 EUGENIA BLAND Sep 19, 2017 11:07
[2017-09-19] MEDS: morphine 1 MG/ML 30 ML (PCA) IV SCH (11:29)
--- NOTE | 2017-09-19 12:34 | PN ---
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 Feeding: advancing diet Pain Control: mild Exam/Review of Systems Vital Signs Vitals Vital Signs Date Time Temp Pulse Resp B/P Pulse Ox O2 Delivery O2 Flow Rate FiO2 09/22/17 14:00 99.6 103 17 144/83 97 Results Result Diagram: 09/22/17 0537 09/22/17 0537 COOKIE BARRIOS MD Sep 19, 2017 12:34 Result Diagram: 09/19/17 0453 09/19/17 0453 COOKIE BARRIOS MD Sep 19, 2017 12:34
--- NOTE | 2017-09-19 12:46 | RADRPT ---
PROCEDURE: Left knee x-ray CLINICAL INDICATION: increased pain TECHNIQUE: AP and lateral views of the knee were obtained. COMPARISON: None FINDINGS: There is normal mineralization. No fracture is identified. Lucencies are seen in the proximal tibial diaphysis, likely related to previous hardware placement. There are no significant degenerative changes. There is no joint effusion. There is no significant soft tissue swelling. IMPRESSION: 1. No acute abnormalities are identified. 2. Lucencies are seen in the proximal tibial diaphysis, likely related to previous hardware placeme nt. RPTAT:AAJJ Physician Kunal Date Time Electronically viewed and signed by Physician Kunal on 09/19/2017 12:46 /
--- NOTE | 2017-09-19 12:49 | RADRPT ---
PROCEDURE: XR Left Ankle. CLINICAL INDICATION: increased pain TECHNIQUE: AP, oblique and lateral views of the ankle were performed. COMPARISON: 09/18/2017 FINDINGS: Images are obtained through a fiberglass splint which limits fine detail. Fixation plates are seen stabilizing the distal lateral tibia and distal medial tibia to include the medial malleolus. A comminuted medial malleolar fracture is present. No additional fractures are cl early identified. No acute fracture is identified. The angle mortise is intact. The soft tissues are unremarkable. IMPRESSION: Fixation plates are seen stabilizing the distal lateral tibia and distal medial tibia to include the medial malleolus. A comminuted medial malleolar fracture is present. RPTAT:AAJJ Physician Kunal Date Time Electronically viewed and signed by Alex Lopez Physician on 09/19/2017 12:49 RONY/
[2017-09-19] MEDS: oxyCODONE 5 MG TAB PO SCH ×3 (13:45→20:41)
[2017-09-19 14:14] VITALS: BP 132/72; RESP 14
[2017-09-19] MEDS: RIVAROXABAN 10 MG TABLET PO SCH (17:23)
[2017-09-19 20:00] VITALS: BP 139/88; RESP 14
[2017-09-19] MEDS: ACETAMINOPHEN 500 MG TAB PO PRN (20:47)
[2017-09-20] MEDS: CEFAZOLIN 2 GM/50 ML (PMX) 50 ML IVPB SCH ×2 (00:36→09:04)
[2017-09-20] MEDS: oxyCODONE 5 MG TAB PO SCH ×6 (00:36→20:37)
[2017-09-20 01:42] VITALS: BP 131/75; RESP 14
[2017-09-20] MEDS: ACETAMINOPHEN 500 MG TAB PO PRN (03:57)
[2017-09-20] MEDS: HYDROmorphONE 1 MG/ML SYG IV PRN ×2 (03:57→06:55)
[2017-09-20 04:31] LABS: BASOPHILS % 0.1 % (0.0-2.0); EOSINOPHILS % 0.1 % (0.0-7.0); HEMATOCRIT 37.7 % (42.0-52.0); HEMOGLOBIN 12.3 g/dl (14.0-18.0); LYMPHOCYTES # 2.5 10^3/ul (0.8-2.9); MEAN CORPUSCULAR HEMOGLOBIN 29.1 pg (29.0-33.0); MEAN CORPUSCULAR HGB CONC 32.6 g/dl (32.0-37.0); MEAN CORPUSCULAR VOLUME 89.3 fl (82.0-101.0); MEAN PLATELET VOLUME 10.1 fl (7.4-10.4); MONOCYTE # 1.3 10^3/ul (0.3-0.9); MONOCYTES % 9.3 % (0.0-11.0); NEUTROPHIL # 9.9 10^3/ul (1.6-7.5); NEUTROPHILS % 72.1 % (39.0-77.0); PLATELET COUNT 384 10^3/UL (140-415); RED BLOOD COUNT 4.22 10^6/ul (4.70-6.10); RED CELL DISTRIBUTION WIDTH 12.1 % (11.5-14.5); WHITE BLOOD COUNT 13.7 10^3/ul (4.8-10.8)
[2017-09-20 04:42] LABS: CALCIUM 8.6 mg/dl (8.4-10.2); CREATININE 0.8 mg/dl (0.61-1.24); POTASSIUM 3.6 mmol/L (3.5-5.1)
[2017-09-20 05:16] LABS: ADD UMIC YES; UR ASCORBIC ACID NEGATIVE (NEGATIVE); UR BILIRUBIN (Dip) NEGATIVE (NEGATIVE); UR BLOOD (Dip) 1+ mg/dL (NEGATIVE); UR CLARITY CLEAR (CLEAR); UR COLOR YELLOW (YELLOW); UR GLUCOSE (Dip) NEGATIVE (NEGATIVE); UR KETONES (Dip) TRACE mg/dL (NEGATIVE); UR LEUKOCYTE ESTERASE (Dip) NEGATIVE Leu/ul (NEGATIVE); UR NITRITE (Dip) NEGATIVE (NEGATIVE); UR RBC 2 /HPF (0-5); UR SPECIFIC GRAVITY (Dip) 1.014 (1.003-1.030); UR TOTAL PROTEIN (Dip) NEGATIVE (NEGATIVE); UR UROBILINOGEN (Dip) NEGATIVE (NEGATIVE)
[2017-09-20 07:38] VITALS: BP 133/71; RESP 18
--- NOTE | 2017-09-20 08:29 | RADRPT ---
PROCEDURE: XR Chest. CLINICAL INDICATION: Fever TECHNIQUE: Single frontal chest x-ray. COMPARISON: None. FINDINGS: No acute infiltrate, pleural effusion or pneumothorax is identified. Cardiomediastinal silhouette i s within normal limits. The osseous structures are unremarkable. IMPRESSION: 1. No evidence of acute cardiopulmonary process. RPTAT: QQ .Tommy Giordano MD, MD Date Time Electronically viewed and signed by .Tommy Giordano MD, on 09/20/2017 08:29 .R/
[2017-09-20] MEDS: SENNA/DOCUSATE NA (8.6MG/50MG) TAB PO SCH ×2 (09:05→20:37)
--- NOTE | 2017-09-20 10:33 | HP ---
Date/Time of Note Date/Time of Note DATE: 09/20/17 TIME: 10:33 Assessment/Plan Lines/Catheters IV Catheter Type (from Nrsg): Saline Lock Urinary Cath still in place: No Assessment/Plan Assessment/Plan 1. Left distal tibial fracture (Comminuted intra-articular displaced left distal tibial fracture with posterior displacement of the majority of the articular surface.) - s/p emergent ORIF -on ANIMAL PATHOLOGIST morphine pump for pain with oral percocets and IV cefazolin per ortho -Will order XRs to ensure continued satisfactory alignment / also notify ortho 2. Mild hypernatremia: resolved 3. Obesity, with a BMI of 36 - weight reduction advise reinforced 4. leucocytosis : likely stress related 5. Post op fever HPI/ROS Admit Date/Time Admit Date/Time Sep 17, 2017 at 18:16 Hx of Present Illness patient developed fever overnight ROS Psychological: anxiety PMH/Family/Social Past Medical History Medical History: no pertinent history Past Surgical History Past Surgical Hx: no surgical history Social History Alcohol Use: none Smoking Status: Never smoker Drug Use: none Exam/Review of Systems Vital Signs Vitals Vital Signs Date Time Temp Pulse Resp B/P Pulse Ox O2 Delivery O2 Flow Rate FiO2 09/20/17 07:38 98.7 96 18 133/71 95 09/18/17 16:00 Room Air 09/18/17 15:19 6.0 Intake and Output 09/19/17 09/19/17 09/20/17 14:59 22:59 06:59 Intake Total 1900 ml 2170 ml 670 ml Output Total 1200 ml 720 ml Balance 700 ml 2170 ml -50 ml Labs Result Diagram: 09/20/17 0350 09/20/17 0350 Medications Medications Current Medications Ondansetron HCl (Zofran Inj) 4 mg Q6H PRN IV NAUSEA AND/OR VOMITING Last administered on 09/18/17 16:41; Admin Dose 4 MG; Start 09/17/17 at 22:00 Senna/Docusate Sodium (Senokot-S) 1 tab BID PO Last administered on 09/20/17 09:05; Admin Dose 1 TAB; Start 09/18/17 at 21:00 Magnesium Hydroxide (Milk Of Mag) 30 ml BID PRN PO CONSTIPATION; Start at 16:00 Ondansetron HCl (Zofran Inj) 4 mg Q4H PRN IV NAUSEA AND/OR VOMITING Last administered on 09/18/17 20:35; Admin Dose 4 MG; Start 09/18/17 at 16:00 Diphenhydramine HCl (Benadryl) 25 mg Q4H PRN PO ITCHING; Start 09/18/17 at 16: 00 Oxycodone HCl (Roxicodone) 10 mg Q4H PO Last administered on 09/20/17 09:05; Admin Dose 10 MG; Start 09/19/17 at 13:00 Acetaminophen (Tylenol Tab) 500 mg Q6H PRN PO PAIN AND OR ELEVATED TEMP Last administered on 09/20/17 03:57; Admin Dose 500 MG; Start 09/19/17 at 13:00 Hydromorphone HCl (Dilaudid) 1 mg Q3H PRN IV PAIN LEVEL 8-10 Last administered on 09/20/17 06:55; Admin Dose 1 MG; Start 09/19/17 at 13:00 EUGENIA BLAND Sep 20, 2017 10:33
--- NOTE | 2017-09-20 13:02 | PN ---
Date/Time of Note Date/Time of Note DATE: 09/20/17 TIME: 12:59 Assessment/Plan VTE Prophylaxis VTE Prophylaxis Intervention: other (xarelto) Lines/Catheters IV Catheter Type (from Nrsg): Saline Lock Urinary Cath still in place: No Assessment/Plan Assessment/Plan 1. Left distal tibial fracture (Comminuted intra-articular displaced left distal tibial fracture with posterior displacement of the majority of the articular surface.) - s/p emergent ORIF -on STOCK DEALER morphine pump for pain with oral percocets and IV cefazolin per ortho -XRs reviewed without concern for re-intervention 2. Mild hypernatremia: resolved 3. Obesity, with a BMI of 36 - weight reduction advise reinforced 4. Leukocytosis and Post op fever: uA and CXR negative so far, f/u blood cultures, continue abx per ortho / continue IS, titrate abx if blood cultures come back positive Plan for d/c when fever free x24hr Subjective 24 Hr Interval Summary Free Text/Dictation patient developed fever overnight, feels better now though. Pain in leg is gone now. Exam/Review of Systems Vital Signs Vitals Vital Signs Date Time Temp Pulse Resp B/P Pulse Ox O2 Delivery O2 Flow Rate FiO2 09/20/17 07:38 98.7 96 18 133/71 95 09/18/17 16:00 Room Air 09/18/17 15:19 6.0 Intake and Output 09/19/17 09/19/17 09/20/17 14:59 22:59 06:59 Intake Total 1900 ml 2170 ml 670 ml Output Total 1200 ml 720 ml Balance 700 ml 2170 ml -50 ml Exam Constitutional: alert Psych: calm Eyes: PERRL ENMT: mucosa pink and moist Neck: supple Respiratory: clear to auscultation Cardiovascular: regular rate and rhythm, No murmurs/extra sounds Gastrointestinal: bowel sounds, non-tender, soft Musculoskeletal: other (R knee in cast fro toes to just below knee. Area around R knee is non tender nor inflammed nor obviously displaced) Neurological: nl mental status Skin: No rash or lesions Results Result Diagram: 09/20/17 0350 09/20/17 0350 Results 24 hrs Laboratory Tests Test 09/20/17 03:11 09/20/17 03:50 Urine Color YELLOW Urine Clarity CLEAR Urine pH 6.0 Urine Specific Metcalf 1.014 Urine Ketones TRACE A Urine Nitrite NEGATIVE Urine Bilirubin NEGATIVE Urine Urobilinogen NEGATIVE Urine Leukocyte Esterase NEGATIVE Urine Microscopic RBC 2 Urine Microscopic WBC 1 Urine Hemoglobin 1+ H Urine Glucose NEGATIVE Urine Total Protein NEGATIVE White Blood Count 13.7 H Red Blood Count 4.22 L Hemoglobin 12.3 L Hematocrit 37.7 L Mean Corpuscular Volume 89.3 Mean Corpuscular Hemoglobin 29.1 Mean Corpuscular Hemoglobin Concent 32.6 Red Cell Distribution Width 12.1 Platelet Count 384 Mean Platelet Volume 10.1 Neutrophils % 72.1 Lymphocytes % 18.0 Monocytes % 9.3 Eosinophils % 0.1 Basophils % 0.1 Nucleated Red Blood Cells % 0.0 Neutrophils # 9.9 H Lymphocytes # 2.5 Monocytes # 1.3 H Eosinophils # 0.0 Basophils # 0.0 Nucleated Red Blood Cells # 0.0 Sodium Level 138 Potassium Level 3.6 Chloride Level 101 Carbon Dioxide Level 27 Anion Gap 14 Blood Urea Nitrogen 6 L Creatinine 0.80 Glucose Level 105 Calcium Level 8.6 Medications Medications Current Medications Ondansetron HCl (Zofran Inj) 4 mg Q6H PRN IV NAUSEA AND/OR VOMITING Last administered on 09/18/17 16:41; Admin Dose 4 MG; Start 09/17/17 at 22:00 Senna/Docusate Sodium (Senokot-S) 1 tab BID PO Last administered on 09/20/17 09:05; Admin Dose 1 TAB; Start 09/18/17 at 21:00 Magnesium Hydroxide (Milk Of Mag) 30 ml BID PRN PO CONSTIPATION; Start at 16:00 Ondansetron HCl (Zofran Inj) 4 mg Q4H PRN IV NAUSEA AND/OR VOMITING Last administered on 09/18/17 20:35; Admin Dose 4 MG; Start 09/18/17 at 16:00 Diphenhydramine HCl (Benadryl) 25 mg Q4H PRN PO ITCHING; Start 09/18/17 at 16: 00 Oxycodone HCl (Roxicodone) 10 mg Q4H PO Last administered on 09/20/17 12:43; Admin Dose 10 MG; Start 09/19/17 at 13:00 Acetaminophen (Tylenol Tab) 500 mg Q6H PRN PO PAIN AND OR ELEVATED TEMP Last administered on 09/20/17 03:57; Admin Dose 500 MG; Start 09/19/17 at 13:00 Hydromorphone HCl (Dilaudid) 1 mg Q3H PRN IV PAIN LEVEL 8-10 Last administered on 09/20/17 06:55; Admin Dose 1 MG; Start 09/19/17 at 13:00 EUGENIA BLAND Sep 20, 2017 13:02
[2017-09-20 14:00] VITALS: BP 136/82; RESP 18
[2017-09-20] MEDS: RIVAROXABAN 10 MG TABLET PO SCH (17:18)
[2017-09-20 20:21] VITALS: BP 158/91; RESP 20
[2017-09-21] MEDS: oxyCODONE 5 MG TAB PO SCH ×6 (00:58→20:56)
[2017-09-21 01:57] VITALS: BP 132/72; RESP 20
[2017-09-21 05:50] LABS: BASOPHILS % 0.2 % (0.0-2.0); EOSINOPHILS # 0.1 10^3/ul (0.0-0.5); EOSINOPHILS % 0.6 % (0.0-7.0); HEMATOCRIT 36.3 % (42.0-52.0); HEMOGLOBIN 12.3 g/dl (14.0-18.0); LYMPHOCYTES % 23.3 % (15.0-51.0); MEAN CORPUSCULAR HEMOGLOBIN 30.1 pg (29.0-33.0); MEAN CORPUSCULAR HGB CONC 33.9 g/dl (32.0-37.0); MEAN PLATELET VOLUME 9.9 fl (7.4-10.4); MONOCYTE # 1.3 10^3/ul (0.3-0.9); MONOCYTES % 9.9 % (0.0-11.0); NEUTROPHIL # 8.3 10^3/ul (1.6-7.5); NEUTROPHILS % 65.4 % (39.0-77.0); PLATELET COUNT 371 10^3/UL (140-415); RED BLOOD COUNT 4.08 10^6/ul (4.70-6.10); RED CELL DISTRIBUTION WIDTH 12.3 % (11.5-14.5); WHITE BLOOD COUNT 12.6 10^3/ul (4.8-10.8)
[2017-09-21 06:29] LABS: CALCIUM 9.1 mg/dl (8.4-10.2); CREATININE 0.88 mg/dl (0.61-1.24); POTASSIUM 3.6 mmol/L (3.5-5.1)
[2017-09-21 07:48] VITALS: BP 135/71; RESP 18
[2017-09-21] MEDS: SENNA/DOCUSATE NA (8.6MG/50MG) TAB PO SCH ×2 (08:57→20:55)
--- NOTE | 2017-09-21 09:12 | PN ---
Date/Time of Note Date/Time of Note DATE: 09/21/17 TIME: 09:11 Assessment/Plan VTE Prophylaxis VTE Prophylaxis Intervention: other (xarelto) Lines/Catheters IV Catheter Type (from Nrsg): Saline Lock Urinary Cath still in place: No Assessment/Plan Assessment/Plan 1. 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 Mild hypernatremia: resolved 3. Obesity, with a BMI of 36 - weight reduction advise reinforced 4. Leukocytosis and Post op fever: uA and CXR negative so far, f/u blood cultures, continue abx per ortho / continue IS, titrate abx if blood cultures come back positive Plan for d/c when fever free x24hr The majority of healthy adults with vitamin D deficiency (eg, serum 25- hydroxyvitamin D [25(OH)D] 10 to 20 ng/mL [25 to 50 nmol/L]) do not require any additional evaluation Subjective 24 Hr Interval Summary Free Text/Dictation still having low grade fevers Exam/Review of Systems Vital Signs Vitals Vital Signs Date Time Temp Pulse Resp B/P Pulse Ox O2 Delivery O2 Flow Rate FiO2 09/21/17 07:48 99.3 100 18 135/71 95 09/18/17 16:00 Room Air 09/18/17 15:19 6.0 Intake and Output 09/20/17 09/20/17 09/21/17 15:00 23:00 07:00 Intake Total 50 ml 1280 ml 700 ml Output Total 1600 ml Balance 50 ml -320 ml 700 ml Exam Constitutional: alert Psych: calm Eyes: PERRL ENMT: mucosa pink and moist Neck: supple Respiratory: clear to auscultation Cardiovascular: regular rate and rhythm, No murmurs/extra sounds Gastrointestinal: bowel sounds, non-tender, soft Musculoskeletal: other (R knee in cast from toes to just below knee. Area around R knee remains non tender nor inflammed nor obviously displaced) Neurological: nl mental status Skin: No rash or lesions Results Result Diagram: 09/21/1752009/21/17520 Results 24 hrs Laboratory Tests Test 09/21/17 05:21 White Blood Count 12.6 H Red Blood Count 4.08 L Hemoglobin 12.3 L Hematocrit 36.3 L Mean Corpuscular Volume 89.0 Mean Corpuscular Hemoglobin 30.1 Mean Corpuscular Hemoglobin Concent 33.9 Red Cell Distribution Width 12.3 Platelet Count 371 Mean Platelet Volume 9.9 Neutrophils % 65.4 Lymphocytes % 23.3 Monocytes % 9.9 Eosinophils % 0.6 Basophils % 0.2 Nucleated Red Blood Cells % 0.0 Neutrophils # 8.3 H Lymphocytes # 3.0 H Monocytes # 1.3 H Eosinophils # 0.1 Basophils # 0.0 Nucleated Red Blood Cells # 0.0 Sodium Level 140 Potassium Level 3.6 Chloride Level 98 Carbon Dioxide Level 30 Anion Gap 16 Blood Urea Nitrogen 8 Creatinine 0.88 Glucose Level 99 Calcium Level 9.1 Medications Medications Current Medications Ondansetron HCl (Zofran Inj) 4 mg Q6H PRN IV NAUSEA AND/OR VOMITING Last administered on 09/18/17 16:41; Admin Dose 4 MG; Start 09/17/17 at 22:00 Senna/Docusate Sodium (Senokot-S) 1 tab BID PO Last administered on 09/21/17 08:57; Admin Dose 1 TAB; Start 09/18/17 at 21:00 Magnesium Hydroxide (Milk Of Mag) 30 ml BID PRN PO CONSTIPATION Last administered on 09/21/17 08:57; Admin Dose 30 ML; Start 09/18/17 at 16:00 Ondansetron HCl (Zofran Inj) 4 mg Q4H PRN IV NAUSEA AND/OR VOMITING Last administered on 09/18/17 20:35; Admin Dose 4 MG; Start 09/18/17 at 16:00 Diphenhydramine HCl (Benadryl) 25 mg Q4H PRN PO ITCHING; Start 09/18/17 at 16: 00 Oxycodone HCl (Roxicodone) 10 mg Q4H PO Last administered on 09/21/17 08:58; Admin Dose 10 MG; Start 09/19/17 at 13:00 Acetaminophen (Tylenol Tab) 500 mg Q6H PRN PO PAIN AND OR ELEVATED TEMP Last administered on 09/20/17 03:57; Admin Dose 500 MG; Start 12/12/17 at 13:00 Hydromorphone HCl (Dilaudid) 1 mg Q3H PRN IV PAIN LEVEL 8-10 Last administered on 09/20/17t 06:55; Admin Dose 1 MG; Start 09/19/17 at 13:00 EUGENIA BLAND Sep 21, 2017 09:12
--- NOTE | 2017-09-21 12:35 | DS ---
Date/Time of Note Date/Time of Note DATE: 09/21/17 TIME: 12:29 Discharge Summary Admission/Discharge Info Admit Date/Time Sep 17, 2017 at 18:16 Discharge Date/Time 09/21/17 . Discharge Diagnosis 1. Left distal tibial fracture (Comminuted intra-articular displaced left distal tibial fracture with posterior displacement of the majority of the articular surface.) - s/p emergent ORIF 09/18/17 2. Mild hypernatremia: resolved 3. Obesity, with a BMI of 36 - weight reduction advised and reinforced 4. Leukocytosis and Post op fever: resolved 5. Mild Vitamin D deficiency with serum 25-hydroxyvitamin D of 11ng/ml : The majority of healthy adults with vitamin D deficiency (eg, serum 25- hydroxyvitamin D [25(OH)D] 10 to 20 ng/mL [25 to 50 nmol/L]) do not require any additional evaluation . Patient Condition: Stable Consults Orthopedic Surgery: Wade Campoverde MD . Procedures See hospital course . Hx of Present Illness See hospital course . Hospital Course 21-year-old male who was sent to the emergency room for admission in preparation for an urgent open reduction and internal fixation with 3 week old ankle fracture he had sustained after fall. He underwent ORIF, for details of the surgery please review the surgeon's notes. His postoperative course was conjugated by severe pain at the surgical site as well as postoperative fever. There was no obvious source of the fever, or fever improved with just incentive spirometer and ambulation. Of note is that patient was continued on IV antibiotics from the time of surgery throughout his hospitalization. At this time he has done quite well, his mother and 24 hours without a significant fever of 100.4. or more. Patient is clinically stable and is desirous of discharge. I am comfortable discharging to complete a 10 day antibiotic course , and continued outpatient follow-up with orthopedic surgery which has already been scheduled for the next 4 days. Patient understands the importance of returning to the emergency room if he develops fever, redness or swelling, or severe pain in his ankle or anywhere else. He has verbalized understanding and agreement with the plan. . Home Meds Reported Medications Hydrocodone Bit-Acetaminophen (Hydrocodone Bit-APAP) 5-325MG Tablet, 1 TAB PO Q6H Y for PAIN, TAB 09/17/17 Ibuprofen* (Ibuprofen*) 600 Mg Tablet, 600 MG PO Q6 Y for PAIN, TAB 09/17/17 Follow-up Plan Call Dr Campoverde's office to confirm your followup appointment Name, Degree : Wade Campoverde MD Specialty : Orthopedic Surgery Office Address : [facility] [address] [place] [address] Office Ext. [phone] Office Also followup with your primary doctor within the next 1-2 weeks. If you don't have one please let someone know, we can give you resources that may help you pick one. You may call Dr Radhames Bach's office. he's accepting new patients Name, Degree: Radhames Bach MD Specialty: Internal Medicine Comments: Office Address: [facility] [address] [place] [address] Office Office You may also call your insurance company to assign one to you. Review your medication list with your nurse before leaving and if you need new prescriptions please let your nurse know. I may have made changes to your home medications or given you new prescriptions, please let your primary doctor know as well. Stay compliant with your medications and report any side effects to your PCP or pharmacist. Return to the ER if you have any concerns and cannot reach your doctors or call your insurance company, they usually have a nurse that can help you. Primary Care Provider Alex Cagle MD Time spent on discharge: > 30 minutes Pending Labs Laboratory Tests Test 09/21/17 05:21 White Blood Count 12.610^3/ul (4.8-10.8) Red Blood Count 4.0810^6/ul (4.70-6.10) Hemoglobin 12.3g/dl (14.0-18.0) Hematocrit 36.3% (42.0-52.0) Mean Corpuscular Volume 89.0fl (82.0-101.0) Mean Corpuscular Hemoglobin 30.1pg (29.0-33.0) Mean Corpuscular Hemoglobin Concent 33.9g/dl (32.0-37.0) Red Cell Distribution Width 12.3% (11.5-14.5) Platelet Count 28325^3/UL (140-415) Mean Platelet Volume 9.9fl (7.4-10.4) Neutrophils % 65.4% (39.0-77.0) Lymphocytes % 23.3% (15.0-51.0) Monocytes % 9.9% (0.0-11.0) Eosinophils % 0.6% (0.0-7.0) Basophils % 0.2% (0.0-2.0) Nucleated Red Blood Cells % 0.0/100WBC (0.0-0.0) Neutrophils # 8.310^3/ul (1.6-7.5) Lymphocytes # 3.010^3/ul (0.8-2.9) Monocytes # 1.310^3/ul (0.3-0.9) Eosinophils # 0.110^3/ul (0.0-0.5) Basophils # 0.010^3/ul (0.0-0.1) Nucleated Red Blood Cells # 0.010^3/ul (0.0-0.0) Sodium Level 140mmol/L (135-144) Potassium Level 3.6mmol/L (3.5-5.1) Chloride Level 98mmol/L (97-110) Carbon Dioxide Level 30mmol/L (21-31) Anion Gap 16 (8-16) Blood Urea Nitrogen 8mg/dl (7-20) Creatinine 0.88mg/dl (0.61-1.24) Glucose Level 99mg/dl (70-220) Calcium Level 9.1mg/dl (8.4-10.2) EUGENIA BLAND Sep 21, 2017 12:35
--- NOTE | 2017-09-21 13:26 | PN ---
Date/Time of Note Date/Time of Note DATE: 09/21/17 TIME: 13:25 Assessment/Plan Lines/Catheters IV Catheter Type (from Nrsg): Saline Lock [place] in Place (from Nrsg): No Assessment/Plan Chief Complaint/Hosp Course Patient is a 21 year old male who sustained a distal tibial pilon fracture 3.5 weeks ago. Due to insurance issues patient does not present for surgery until now. He was admitted through the ER yesterday and ct scan shows displaced ankle fracture dislocation. Patient requires urgent surgical fixation. Pain is moderately controlled Problems: Assessment/Plan POD #3 s/p Left ankle fracture dislocation displaced distal tibial pilon fracture open reduction internal fixation with allograft Application of external fixator followed by removal of ex- fix Low Vit D of 11 - will need to start 50,000 IU daily Elevated temp likely related to atelectasis - encourage IS - NWB to the LLE - PT to GT - PO Pain meds - Ok to DC when ok with Primary E Gilles Subjective 24 Hr Interval Summary Patient is doing much better Exam/Review of Systems Vital Signs Vitals Vital Signs Date Time Temp Pulse Resp B/P Pulse Ox O2 Delivery O2 Flow Rate FiO2 09/22/17 14:00 99.6 103 17 144/83 97 Exam Constitutional: alert, oriented, well developed Musculoskeletal: other (LLE/ Splint intact - toes wiggle, SILT to the exposed toes, CR brisk) Results Result Diagram: 09/22/17 0537 09/22/17 0537 COOKIE BARRIOS MD Sep 21, 2017 13:26 COOKIE BARRIOS MD Sep 21, 2017 13:26
[2017-09-21 13:46] VITALS: BP 123/77; RESP 20
[2017-09-21] MEDS: ACETAMINOPHEN 500 MG TAB PO PRN (14:13)
--- NOTE | 2017-09-21 16:56 | RADRPT ---
PROCEDURE: Fluoroscopic spot views of the left ankle for surgical guidance CLINICAL INDICATION: Trauma with left ankle pain fracture TECHNIQUE: 18 fluoroscopic spot views of the left ankle. Images were submitted to the radiology de partment for interpretation. COMPARISON: 09/17/2017 FINDINGS: Comminuted fracture of the distal tibia is seen. Interval open reduction and internal fixation is se en as multiple surgical instruments are identified. The images were reviewed by the attending physic valerie at the time of the procedure. Fluoroscopy time was 88.6 seconds. IMPRESSION: Intraoperative images were obtained of the for surgical guidance. Please refer to the surgeon's ope rative notes for further details. RPTAT: HPNM Physician Uzma Date Time Electronically viewed and signed by Physician Uzma on 09/21/2017 15:21 /
[2017-09-21] MEDS: RIVAROXABAN 10 MG TABLET PO SCH (17:11)
[2017-09-21 19:11] VITALS: BP 133/79; RESP 20
[2017-09-22] MEDS: oxyCODONE 5 MG TAB PO SCH ×5 (01:12→17:27)
[2017-09-22 02:42] VITALS: BP 128/78; RESP 20
[2017-09-22 06:29] LABS: BASOPHILS % 0.2 % (0.0-2.0); EOSINOPHILS # 0.2 10^3/ul (0.0-0.5); EOSINOPHILS % 1.6 % (0.0-7.0); HEMATOCRIT 36.6 % (42.0-52.0); HEMOGLOBIN 12.1 g/dl (14.0-18.0); LYMPHOCYTES # 2.2 10^3/ul (0.8-2.9); LYMPHOCYTES % 23.3 % (15.0-51.0); MEAN CORPUSCULAR HEMOGLOBIN 29.6 pg (29.0-33.0); MEAN CORPUSCULAR HGB CONC 33.1 g/dl (32.0-37.0); MEAN CORPUSCULAR VOLUME 89.5 fl (82.0-101.0); MEAN PLATELET VOLUME 10.1 fl (7.4-10.4); MONOCYTE # 0.9 10^3/ul (0.3-0.9); MONOCYTES % 9.6 % (0.0-11.0); NEUTROPHIL # 6.2 10^3/ul (1.6-7.5); NEUTROPHILS % 64.9 % (39.0-77.0); PLATELET COUNT 432 10^3/UL (140-415); RED BLOOD COUNT 4.09 10^6/ul (4.70-6.10); RED CELL DISTRIBUTION WIDTH 12.1 % (11.5-14.5); WHITE BLOOD COUNT 9.6 10^3/ul (4.8-10.8)
[2017-09-22 06:51] LABS: CREATININE 0.84 mg/dl (0.61-1.24); MAGNESIUM 2.1 mg/dl (1.7-2.5); POTASSIUM 3.8 mmol/L (3.5-5.1)
[2017-09-22 08:00] VITALS: BP 136/84; RESP 18
[2017-09-22] MEDS: SENNA/DOCUSATE NA (8.6MG/50MG) TAB PO SCH (08:53)
[2017-09-22] MEDS ORDERED: CHOLECALCIFEROL 2,000 UNIT CAP PO ONE (10:30)
[2017-09-22] MEDS ORDERED: SENN1TAB19 PO (10:37)
[2017-09-22] MEDS ORDERED: RIVA10TA PO (10:37)
--- NOTE | 2017-09-22 10:37 | PDOCDIS ---
Discharge Instructions DIAGNOSIS Discharge Diagnosis 1. Left distal tibial fracture (Comminuted intra-articular displaced left distal tibial fracture with posterior displacement of the majority of the articular surface.) - s/p emergent ORIF 09/18/17 2. Mild hypernatremia: resolved 3. Obesity, with a BMI of 36 - weight reduction advised and reinforced 4. Leukocytosis and Post op fever: resolved 5. Mild Vitamin D deficiency with serum 25-hydroxyvitamin D of 11ng/ml : The majority of healthy adults with vitamin D deficiency (eg, serum 25- hydroxyvitamin D [25(OH)D] 10 to 20 ng/mL [25 to 50 nmol/L]) do not require any additional evaluation . CONDITION Patient Condition: Stable HOME CARE INSTRUCTIONS: Special Diet: regular diet ACTIVITY: Activity Restrictions: Slowly Increase Activity Rest between Activity FOLLOW UP/APPOINTMENTS Follow-up Plan Call Dr Campoverde's office to confirm your followup appointment Name, Degree : Wade Campoverde MD Specialty : Orthopedic Surgery Office Address : [address] [place] [address] Office Ext. [phone] Office Also followup with your primary doctor within the next 1-2 weeks. If you don't have one please let someone know, we can give you resources that may help you pick one. You may call Dr Radhames Bach's office. he's accepting new patients Name, Degree: Radhames Bach MD Specialty: Internal Medicine Comments: Office Address: [address] [place] [address] [address] [place] [address] Office Office You may also call your insurance company to assign one to you. Review your medication list with your nurse before leaving and if you need new prescriptions please let your nurse know. I may have made changes to your home medications or given you new prescriptions, please let your primary doctor know as well. Stay compliant with your medications and report any side effects to your PCP or pharmacist. Return to the ER if you have any concerns and cannot reach your doctors or call your insurance company, they usually have a nurse that can help you. EUGENIA BLAND Sep 22, 2017 10:37
[2017-09-22] MEDS ORDERED: AMOX1TAB10 PO (10:39)
[2017-09-22 14:00] VITALS: BP 144/83; RESP 17
--- NOTE | 2017-09-22 15:09 | DS ---
Date/Time of Note Date/Time of Note DATE: 09/22/17 TIME: 15:07 Discharge Summary Admission/Discharge Info Admit Date/Time Sep 17, 2017 at 18:16 Discharge Date/Time Discharge Diagnosis 1. Left distal tibial fracture (Comminuted intra-articular displaced left distal tibial fracture with posterior displacement of the majority of the articular surface.) - s/p emergent ORIF 09/18/17 2. Mild hypernatremia: resolved 3. Obesity, with a BMI of 36 - weight reduction advised and reinforced 4. Leukocytosis and Post op fever: resolved 5. Mild Vitamin D deficiency with serum 25-hydroxyvitamin D of 11ng/ml : The majority of healthy adults with vitamin D deficiency (eg, serum 25- hydroxyvitamin D [25(OH)D] 10 to 20 ng/mL [25 to 50 nmol/L]) do not require any additional evaluation . Patient Condition: Stable Hx of Present Illness See hospital course . Hospital Course 21-year-old male who was sent to the emergency room for admission in preparation for an urgent open reduction and internal fixation with 3 week old ankle fracture he had sustained after fall. He underwent ORIF, for details of the surgery please review the surgeon's notes. His postoperative course was conjugated by severe pain at the surgical site as well as postoperative fever. There was no obvious source of the fever, or fever improved with just incentive spirometer and ambulation. Of note is that patient was continued on IV antibiotics from the time of surgery throughout his hospitalization. At this time he has done quite well, his mother and 24 hours without a significant fever of 100.4. or more. Patient is clinically stable and is desirous of discharge. I am comfortable discharging to complete a 10 day antibiotic course , and continued outpatient follow-up with orthopedic surgery which has already been scheduled for the next 4 days. Patient understands the importance of returning to the emergency room if he develops fever, redness or swelling, or severe pain in his ankle or anywhere else. He has verbalized understanding and agreement with the plan. . addendum: Patient's was held till the next day because of continued episodes of low-grade temp and of which exceeded 100.4. Patient has had only one episode so far in the last 12 hours and that was 99.5. Patient states he had multiple blankets on when temperature was taken. Patient feels he will do well at home as his sister is a DEPARTMENT SUPERVISOR, and a lot of his family members work in healthcare. I agree with this assessment, and if patient remains stable for discharge and continued outpatient follow-up. No further workup or intervention required in my opinion. . Home Meds Active Scripts Sennosides/Docusate Sodium (Dok Plus Tablet) 1 Each Tablet, 1 TAB PO BID for 14 Days, TAB Prov:EUGENIA BLAND. 09/22/17 Rivaroxaban* (Xarelto*) 10 Mg Tablet, 10 MG PO WITH DINNER for 7 Days, #7 TAB Prov:EUGENIA BLAND. 09/22/17 Reported Medications Hydrocodone Bit-Acetaminophen (Hydrocodone Bit-APAP) 5-325MG Tablet, 1 TAB PO Q6H Y for PAIN, TAB 09/17/17 Ibuprofen* (Ibuprofen*) 600 Mg Tablet, 600 MG PO Q6 Y for PAIN, TAB 09/17/17 Follow-up Plan Call Dr Campoverde's office to confirm your followup appointment Name, Degree : Wade Campoverde MD Specialty : Orthopedic Surgery Office Address : [facility] [address] [place] [address]. [address] [place] [address] Office Ext. [phone] Office Also followup with your primary doctor within the next 1-2 weeks. If you don't have one please let someone know, we can give you resources that may help you pick one. You may call Dr Radhames Bach's office. he's accepting new patients Name, Degree: Radhames Bach MD Specialty: Internal Medicine Comments: Office Address: [address] [place] [address] [address] [place] [address] Office Office You may also call your insurance company to assign one to you. Review your medication list with your nurse before leaving and if you need new prescriptions please let your nurse know. I may have made changes to your home medications or given you new prescriptions, please let your primary doctor know as well. Stay compliant with your medications and report any side effects to your PCP or pharmacist. Return to the ER if you have any concerns and cannot reach your doctors or call your insurance company, they usually have a nurse that can help you. Primary Care Provider Alex Cagle MD Time spent on discharge: > 30 minutes Pending Labs Laboratory Tests Test 09/22/17 05:37 White Blood Count 9.610^3/ul (4.8-10.8) Red Blood Count 4.0910^6/ul (4.70-6.10) Hemoglobin 12.1g/dl (14.0-18.0) Hematocrit 36.6% (42.0-52.0) Mean Corpuscular Volume 89.5fl (82.0-101.0) Mean Corpuscular Hemoglobin 29.6pg (29.0-33.0) Mean Corpuscular Hemoglobin Concent 33.1g/dl (32.0-37.0) Red Cell Distribution Width 12.1% (11.5-14.5) Platelet Count 42353^3/UL (140-415) Mean Platelet Volume 10.1fl (7.4-10.4) Neutrophils % 64.9% (39.0-77.0) Lymphocytes % 23.3% (15.0-51.0) Monocytes % 9.6% (0.0-11.0) Eosinophils % 1.6% (0.0-7.0) Basophils % 0.2% (0.0-2.0) Nucleated Red Blood Cells % 0.0/100WBC (0.0-0.0) Neutrophils # 6.210^3/ul (1.6-7.5) Lymphocytes # 2.210^3/ul (0.8-2.9) Monocytes # 0.910^3/ul (0.3-0.9) Eosinophils # 0.210^3/ul (0.0-0.5) Basophils # 0.010^3/ul (0.0-0.1) Nucleated Red Blood Cells # 0.010^3/ul (0.0-0.0) Sodium Level 136mmol/L (135-144) Potassium Level 3.8mmol/L (3.5-5.1) Chloride Level 97mmol/L (97-110) Carbon Dioxide Level 30mmol/L (21-31) Anion Gap 13 (8-16) Blood Urea Nitrogen 9mg/dl (7-20) Creatinine 0.84mg/dl (0.61-1.24) Glucose Level 106mg/dl (70-220) Calcium Level 9.0mg/dl (8.4-10.2) Magnesium Level 2.1mg/dl (1.7-2.5) EUGENIA BLAND. Sep 22, 2017 15:09
[2017-09-22] MEDS: RIVAROXABAN 10 MG TABLET PO SCH (17:27)
== END 2017-09-22 19:00 | disposition home or self-care (01) | DRG 493 ==
LOC: E/R 15:39 → MS2 18:16
PROVIDERS: ADMIT Internal Medicine; ATTEND Internal Medicine
PROC: 0QSH04Z Reposition Left Tibia with Internal Fixation Device, Open Approach (ICD-10-PCS; principal; 2017-09-18 10:30)
DX: S82.252A Displaced comminuted fracture of shaft of left tibia, initial encounter for closed fracture (principal); E87.0 Hyperosmolality and hypernatremia; E66.9 Obesity, unspecified; Z68.36 Body mass index [BMI] 36.0-36.9, adult; R50.82 Postprocedural fever; D72.829 Elevated white blood cell count, unspecified; E83.32 Hereditary vitamin D-dependent rickets (type 1) (type 2); W19.XXXA Unspecified fall, initial encounter
CPT/HCPCS: 36415; 71010; 73560; 73610; 73700; 80048; 80053; 81001; 82306; 83735; 84100; 85025; 85610; 87040; 90686; 96374; 96375; 97110; 97116; 97162; 97530; 97542; J0690; J1100; J1170; J1885; J2250; J2270; J2405; J2795; J3010; J7030; J7042

== ENCOUNTER 2017-10-03 21:42 | Emergency (ER) | payer OTHER ==
[~2017-10-03] VITALS: Ht 175.3 cm; Wt 100.0 kg
[~2017-10-03 21:42] MED LIST: AMOX1TAB10 PO; HYDR-3498 PO; IBUP-1542 PO; RIVA10TA PO; SENN1TAB19 PO
[2017-10-03 22:16] VITALS: Ht 175.3 cm; Wt 100.0 kg
[2017-10-04] MEDS ORDERED: ONDANSETRON (ODT) 4 MG TAB ODT STA (01:53)
--- NOTE | 2017-10-04 01:58 | ERD ---
ER Documentation Chief Complaint Chief Complaint AP x4 hrs [employer] F[employer]ER. +n/v. last bm today. pt taking [place] s/p Lt ankle sx HPI 21-year-old male presents here to emergency department for complaints of mid abdominal pain that started 4 hours prior to arrival. Patient describes the pain as throbbing pain, 6/10 scale, accompanied with vomiting, vomited 4 times. Patient is vomiting blood in the vomit. Patient is vomiting blood in the stool or black stool. Patient is vomiting diarrhea or constipation. Patient denies any fever or chills. ROS All systems reviewed and are negative except as per history of present illness. Medications Home Meds Active Scripts Amoxicillin/Potassium Clav (Amox-Clav 875-125 mg Tablet) 875-125 mg Tab, 1 TAB PO BID for 6 Days, TAB Prov:EUGENIA BLAND. 09/22/17 Sennosides/Docusate Sodium (Dok Plus Tablet) 1 Each Tablet, 1 TAB PO BID for 14 Days, TAB Prov:EUGENIA BLAND 09/22/17 Rivaroxaban* (Xarelto*) 10 Mg Tablet, 10 MG PO WITH DINNER for 7 Days, #7 TAB Prov:EUGENIA BLAND. 09/22/17 Reported Medications Hydrocodone Bit-Acetaminophen (Hydrocodone Bit-APAP) 5-325MG Tablet, 1 TAB PO Q6H Y for PAIN, TAB 09/17/17 Ibuprofen* (Ibuprofen*) 600 Mg Tablet, 600 MG PO Q6 Y for PAIN, TAB 09/17/17 Allergies Allergies: Coded Allergies: No Known Allergy (Unverified , 10/03/17) PMhx/Soc Medical and Surgical Hx: pt denies Medical Hx History of Surgery: Yes (right foot) Anesthesia Reaction: No Hx Neurological Disorder: No Hx Respiratory Disorders: No Hx Cardiac Disorders: No Hx Psychiatric Problems: No Hx Miscellaneous Medical Probl: No Hx Alcohol Use: No Hx Substance Use: No Hx Tobacco Use: No Smoking Status: Never smoker FmHx Family History: No coronary disease, No diabetes, No other Physical Exam Vitals Vital Signs Date Time Temp Pulse Resp B/P Pulse Ox O2 Delivery O2 Flow Rate FiO2 10/03/17 22:16 97.3 71 18 130/88 100 Physical Exam GENERAL: The patient is well developed and appropriate for usual state of health, in no apparent distress. CHEST: Clear to auscultation bilaterally. There are no rales, wheezes or rhonchi. HEART: Regular rate and rhythm. No murmurs, clicks, rubs or gallops. No S3 or S4. ABDOMEN: Soft, nontender and nondistended. Good bowel sounds. No rebound or guarding. No gross peritonitis. No gross organomegaly or masses. No Reynolds sign or McBurney point tenderness. BACK: No midline or flank tenderness. EXTREMITIES: Equal pulses bilaterally. There is no peripheral clubbing, cyanosis or edema. No focal swelling or erythema. Full range of motion. Grossly neurovascularly intact. NEURO: Alert and oriented. Cranial nerves 2-12 intact. Motor strength in all 4 extremities with 5/5 strength. Sensation grossly intact. Normal speech and gait. SKIN: There is no apparent rash or petechia. The skin is warm and dry. HEMATOLOGIC AND LYMPHATIC: There is no evidence of excessive bruising or lymphedema. No gross cervical, axillary, or inguinal lymphadenopathy. Result Diagram: 10/04/17 0234 10/04/17 0234 Results 24 hrs Laboratory Tests Test 10/04/17 02:08 10/04/17 02:34 Urine Color MARCUS Urine Clarity SLIGHTLY CLOUDY Urine pH 6.0 Urine Specific [place] 1.033 Urine Ketones TRACEmg/dL Urine Nitrite NEGATIVEmg/dL Urine Bilirubin 1+mg/dL Urine Urobilinogen 1+mg/dL Urine Leukocyte Esterase NEGATIVELeu/ul Urine Microscopic RBC 2/HPF Urine Microscopic WBC 1/HPF Urine Mucus MANY/HPF Urine Hemoglobin NEGATIVEmg/dL Urine Glucose NEGATIVEmg/dL Urine Total Protein 1+mg/dl White Blood Count 18.810^3/ul Red Blood Count 4.4210^6/ul Hemoglobin 12.8g/dl Hematocrit 39.1% Mean Corpuscular Volume 88.5fl Mean Corpuscular Hemoglobin 29.0pg Mean Corpuscular Hemoglobin Concent 32.7g/dl Red Cell Distribution Width 12.2% Platelet Count 96095^3/UL Mean Platelet Volume 9.7fl Neutrophils % 86.3% Lymphocytes % 10.0% Monocytes % 2.9% Eosinophils % 0.1% Basophils % 0.2% Nucleated Red Blood Cells % 0.0/100WBC Neutrophils # 16.210^3/ul Lymphocytes # 1.910^3/ul Monocytes # 0.610^3/ul Eosinophils # 0.010^3/ul Basophils # 0.010^3/ul Nucleated Red Blood Cells # 0.010^3/ul Sodium Level 146mmol/L Potassium Level 3.9mmol/L Chloride Level 109mmol/L Carbon Dioxide Level 23mmol/L Anion Gap 18 Blood Urea Nitrogen 8mg/dl Creatinine 0.72mg/dl Glucose Level 119mg/dl Calcium Level 9.7mg/dl Total Bilirubin 0.2mg/dl Direct Bilirubin 0.00mg/dl Indirect Bilirubin 0.2mg/dl Aspartate Amino Transf (AST/SGOT) 21IU/L Alanine Aminotransferase (ALT/SGPT) 39IU/L Alkaline Phosphatase 93IU/L Total Protein 8.5g/dl Albumin 5.0g/dl Globulin 3.50g/dl Albumin/Globulin Ratio 1.42 Lipase 75U/L Current Medications Medications (Trade) Dose Ordered Sig/Salazar Route PRN Reason Start Time Stop Time Status Last Admin Dose Admin Ondansetron HCl (Zofran Odt) 4 mg ONCE STAT ODT 10/04/17 01:53 10/04/17 01:54 DC 10/04/17 02:39 Patient was given Zofran here in the emergency department. After treatment, patient was able to tolerate po fluids here in the emergency department without any vomiting. There is no signs and symptoms of dehydration. PROCEDURE: CT ABDOMEN/PELVIS WITHOUT CONTRAST CLINICAL INDICATION: 21-year-old male with abdominal pain. TECHNIQUE: The study was performed utilizing a GE Juk[employer]peed VCT 64-slice CT scanner. Direct axial sections were obtained through the abdomen and pelvis without the use of intravenous contrast material. Sagittal and coronal reformations were obtained. One or more of the following dose reduction techniques were utilized: automated exposure control, adjustment of the mA and/ or kV according to patient's size and/or the use of iterative reconstruction technique. DICOM images are available. The images were reviewed on a PACS workstation. CTD/vol = 22.9 mGy; Total Exam DLP = 1621.0 mGy-cm. COMPARISON: None. FINDINGS: The lung bases are unremarkable. There is no evidence for significant pleural effusion. The liver has a normal size and contour without focal areas of abnormal density. No intrahepatic nor extrahepatic biliary ductal dilatation is seen. The gallbladder demonstrates no wall thickening nor pericholecystic fluid. No biliary stones are evident. The pancreas is without areas of abnormal attenuation. The spleen is identified and has a normal size without abnormal density. The adrenal glands are unremarkable. The kidneys are without abnormal density. No hydroureteronephrosis nor nephroureterolithiasis is evident. The urinary bladder is decompressed. There is mild retained stool identified within the ascending and transverse colon without obstruction. The appendix is diminutive and is without abnormal thickening or surrounding inflammatory reaction. The aortoiliac vessels are without aneurysmal dilatation. The osseous structures are intact. IMPRESSION: 1. Mild retained stool within the proximal colon without obstruction. 2. No CT evidence for appendicitis. .Pritesh Lewis MD, MD Date Time Electronically viewed and signed by .Pritesh Lewis MD, MD on 10/04/2017 03:29 .M/ CC: SOPHIA RUSSELL [employer]CH[employer]IC Procedures/MDM Medical Decision Making: Patient symptoms of vomiting abdominal pain epigastric pain nonspecific at this time, possible viral illness. Patient has elevated WBC but most likely is consistent with stress reaction from excessive vomiting. If these are normal, no suspicion for biliary colic/biliary infection, cholecystitis, acute pancreatitis, lipase is normal. Patient does not have any vomiting at this time. There is low suspicion for abdominal emergencies at this time. Patients abdominal exam is normal at this time. Patients radiology exam does not show any abdominal emergencies at this time. There is low suspicion for appendicitis, cholecystitis, abdominal aortic aneurysms or peritonitis at this time. There is low suspicion for sepsis. Patient appears well and is hemodynamically stable. Disposition: Home. Condition: Stable Prescription Zofran Pepcid Instructions: Patient is advised to take medications as prescribed. Patient is advised to rest, increase fluid intake and do brat diet for next 1-2 days and progress as tolerated. Patient is advised that if symptoms are worse, severe abdominal pain, uncontrolled vomiting, high fever, severe flank pain, worst signs and symptoms, to return to the emergency department immediately. Otherwise, patient can follow up with primary care doctor/ in the emergency department 8 hours for reevaluation of symptoms Disclaimer: Inadvertent spelling and grammatical errors are likely due to EHR/ dictation software use and do not reflect on the overall quality of patient care. Also, please note that the electronic time recorded on this note does not necessarily reflect the actual time of the patient encounter. Departure Diagnosis: Primary Impression: Abdominal pain Abdominal location: epigastric Qualified Code: R10.13 - Epigastric pain Additional Impression: Vomiting Vomiting type: unspecified Vomiting Intractability: unspecified Nausea presence: unspecified Qualified Code: R11.10 - Vomiting, intractability of vomiting not specified, presence of nausea not specified, unspecified vomiting type Condition: Stable Patient Instructions: Abdominal Pain, Vomiting (6Y-Adult) Additional Instructions: Patient is advised to take medications as prescribed. Patient is advised to rest , increase fluid intake and do brat diet for next 1-2 days and progress as tolerated. Patient is advised that if symptoms are worse, severe abdominal pain , uncontrolled vomiting, high fever, severe flank pain, worst signs and symptoms , to return to the emergency department immediately. Otherwise, patient can follow up with primary care doctor/ in the emergency department 8 hours for reevaluation of symptoms SOPHIA RUSSELL NP Oct 04, 2017 01:58
[2017-10-04 02:54] LABS: BASOPHILS % 0.2 % (0.0-2.0); EOSINOPHILS % 0.1 % (0.0-7.0); HEMATOCRIT 39.1 % (42.0-52.0); HEMOGLOBIN 12.8 g/dl (14.0-18.0); LYMPHOCYTES # 1.9 10^3/ul (0.8-2.9); MEAN CORPUSCULAR HGB CONC 32.7 g/dl (32.0-37.0); MEAN CORPUSCULAR VOLUME 88.5 fl (82.0-101.0); MEAN PLATELET VOLUME 9.7 fl (7.4-10.4); MONOCYTE # 0.6 10^3/ul (0.3-0.9); MONOCYTES % 2.9 % (0.0-11.0); NEUTROPHIL # 16.2 10^3/ul (1.6-7.5); NEUTROPHILS % 86.3 % (39.0-77.0); PLATELET COUNT 562 10^3/UL (140-415); RED BLOOD COUNT 4.42 10^6/ul (4.70-6.10); RED CELL DISTRIBUTION WIDTH 12.2 % (11.5-14.5); WHITE BLOOD COUNT 18.8 10^3/ul (4.8-10.8)
[2017-10-04 03:13] LABS: ALBUMIN/GLOBULIN RATIO 1.42; BILIRUBIN,INDIRECT 0.2 mg/dl (0-1.1); BILIRUBIN,TOTAL 0.2 mg/dl (0.2-1.3); CALCIUM 9.7 mg/dl (8.4-10.2); CREATININE 0.72 mg/dl (0.61-1.24); POTASSIUM 3.9 mmol/L (3.5-5.1); TOTAL PROTEIN 8.5 g/dl (6.1-8.1)
--- NOTE | 2017-10-04 03:29 | RADRPT ---
PROCEDURE: CT ABDOMEN/PELVIS WITHOUT CONTRAST CLINICAL INDICATION: 21-year-old male with abdominal pain. TECHNIQUE: The study was performed utilizing a GE [employer] VCT 64-slice CT scanner. Direct axia l sections were obtained through the abdomen and pelvis without the use of intravenous contrast mate rial. Sagittal and coronal reformations were obtained. One or more of the following dose reduction t echniques were utilized: automated exposure control, adjustment of the mA and/or kV according to pat ient's size and/or the use of iterative reconstruction technique. DICOM images are available. The im ages were reviewed on a PACS workstation. CTD/vol = 22.9 mGy; Total Exam DLP = 1621.0 mGy-cm. COMPARISON: None. FINDINGS: The lung bases are unremarkable. There is no evidence for significant pleural effusion. The liver has a normal size and contour without focal areas of abnormal density. No intrahepatic nor extrahepa tic biliary ductal dilatation is seen. The gallbladder demonstrates no wall thickening nor perichole cystic fluid. No biliary stones are evident. The pancreas is without areas of abnormal attenuation. The spleen is identified and has a normal size without abnormal density. The adrenal glands are unr emarkable. The kidneys are without abnormal density. No hydroureteronephrosis nor nephroureterolithi asis is evident. The urinary bladder is decompressed. There is mild retained stool identified within the ascending and transverse colon without obstruction. The appendix is diminutive and is without abnormal thickening or surrounding inflammatory reaction. The aortoiliac vessels are without aneurys mal dilatation. The osseous structures are intact. IMPRESSION: 1. Mild retained stool within the proximal colon without obstruction. 2. No CT evidence for appendicitis. .Pritesh Lewis MD, MD Date Time Electronically viewed and signed by .Pritesh Lewis MD, MD on 10/04/2017 03:29 .M/
[2017-10-04 04:19] LABS: ADD UMIC YES; UR ASCORBIC ACID NEGATIVE (NEGATIVE); UR BILIRUBIN (Dip) 1+ mg/dL (NEGATIVE); UR BLOOD (Dip) NEGATIVE (NEGATIVE); UR CLARITY SLIGHTLY CLOUDY (CLEAR); UR COLOR AMBER (YELLOW); UR GLUCOSE (Dip) NEGATIVE (NEGATIVE); UR KETONES (Dip) TRACE mg/dL (NEGATIVE); UR LEUKOCYTE ESTERASE (Dip) NEGATIVE Leu/ul (NEGATIVE); UR MUCUS MANY /HPF (NONE SEEN); UR NITRITE (Dip) NEGATIVE (NEGATIVE); UR RBC 2 /HPF (0-5); UR SPECIFIC GRAVITY (Dip) 1.033 (1.003-1.030); UR TOTAL PROTEIN (Dip) 1+ mg/dl (NEGATIVE); UR UROBILINOGEN (Dip) 1+ mg/dL (NEGATIVE)
[2017-10-04] MEDS ORDERED: ONDA4TAB14 PO (04:43)
[2017-10-04] MEDS ORDERED: ACET500C5 PO (04:43)
[2017-10-04] MEDS ORDERED: FAMO-96 PO (04:44)
[2017-10-04 05:02] VITALS: BP 133/92; PULSE 93; RESP 20; TEMP 98.2
== END 2017-10-04 05:03 | disposition home or self-care (01) ==
LOC: FTE 21:42
DX: R10.13 Epigastric pain (principal); R11.10 Vomiting, unspecified
CPT/HCPCS: 74176; 80053; 81001; 83690; 85025; Z7502; Z7610

== ENCOUNTER 2017-10-14 12:17 | Inpatient (IN) | END 2017-10-18 11:48 | disposition home or self-care (01) | DRG 419 ==